=== PATIENT | female | born 1975 | race Caucasian/White ===

== ENCOUNTER 2017-09-22 20:52 | Emergency (ER) | payer BC, OTHER ==
[2017-09-22 21:15] VITALS: O2SAT 98
--- NOTE | 2017-09-22 21:24 | ERPHSYRPT ---
- History of Present Illness Time Seen by Provider: 09/22/17 21:17 Historian: patient, family Exam Limitations: no limitations Patient Subjective Stated Complaint: pt reports eating a raw hamburger from [employer] yesterday. last night began with abd cramps and diarrhea. reports approx 12 diarrhea stools since last night. Triage Nursing Assessment: pt is aox3, pt pupils perrl, pt resps easy and non labored, abd is soft and non tender, bowel sounds are present and normoactive x4. abd cramping to diffuse abdomen. cap refill < 3 seconds. mucmous membranes are moist. Physician History: pt ate raw hamburger yesterday and developed diarrhea - no blood noted; no prior abd surgery only cramping pain no vomiting , no fever, abd nottender to palp Timing/Duration: yesterday Activities at Onset: none Quality: cramping Abdominal Pain Onset Location: generalized abdomen Pain Radiation: no radiation Severity of Pain-Max: moderate Severity of Pain-Current: moderate Associated Symptoms: diarrhea, nausea Previous symptoms: no prior history, no recent treatment Allergies/Adverse Reactions: No Known Drug Allergies Allergy (Unverified 09/22/17 21:14) Hx Tetanus, Diphtheria Vaccination/Date Given: No Hx Influenza Vaccination/Date Given: No Hx Pneumococcal Vaccination/Date Given: No Immunizations Up to Date: Yes - Review of Systems Constitutional: No Fever, No Chills Eyes: No Symptoms Ears, Nose, & Throat: No Symptoms Respiratory: No Cough, No Dyspnea Cardiac: No Chest Pain, No Edema, No Syncope Abdominal/Gastrointestinal: Abdominal Pain, Nausea, Diarrhea, No Vomiting Genitourinary Symptoms: No Dysuria Musculoskeletal: No Back Pain, No Neck Pain Skin: No Rash Neurological: No Dizziness, No Focal Weakness, No Sensory Changes Psychological: No Symptoms Endocrine: No Symptoms All Other Systems: Reviewed and Negative - Past Medical History Pertinent Past Medical History: No - Past Surgical History Past Surgical History: Yes Female Surgical History: Section, Other Other Surgical History: cervical CA, part of cervix removed 1996 - Social History Smoking Status: Never smoker Drug Use: none Patient Lives Alone: No - Female History Hx Last Menstrual Period: 09/12/17 Hx Now: No - Nursing Vital Signs Nursing Vital Signs: Initial Vital Signs Temperature 99.6 F 09/22/17 21:02 Pulse Rate 88 09/22/17 21:02 Respiratory Rate 18 06/09/18 21:02 Blood Pressure 189/132 09/22/17 21:02 O2 Sat by Pulse Oximetry 98 09/22/17 21:02 Pain Scale Pain Intensity 4 - Physical Exam General Appearance: no apparent distress, alert Eye Exam: PERRL/EOMI, eyes nml inspection Ears, Nose, Throat Exam: normal ENT inspection, pharynx normal, moist mucous membranes Neck Exam: normal inspection, non-tender, supple, full range of motion Respiratory Exam: normal breath sounds, lungs clear, No respiratory distress Cardiovascular Exam: regular rate/rhythm, normal heart sounds Gastrointestinal/Abdomen Exam: soft, No tenderness, No mass Back Exam: normal inspection, normal range of motion, No CVA tenderness, No vertebral tenderness Extremity Exam: normal inspection, normal range of motion, pelvis stable Neurologic Exam: alert, oriented x 3, cooperative, normal mood/affect, nml cerebellar function, sensation nml, No motor deficits Skin Exam: normal color, warm, dry SpO2: 98 Oxygen Delivery: Room Air - Course Nursing assessment & vital signs reviewed: Yes Ordered Tests: Active Orders 24 hr Category Date Time Status IV Insertion STAT Care 09/22/17 21:26 Active PO Fluid Challenge STAT Care 09/22/17 22:38 Active AMYLASE Stat Lab 09/22/17 21:40 Completed CBC W DIFF Stat Lab 09/22/17 21:40 Completed CMP Stat Lab 09/22/17 21:40 Completed HCG QUALITATIVE,SERUM Stat Lab 09/22/17 21:40 Completed LIPASE Stat Lab 09/22/17 21:40 Completed Lactic Acid Stat Lab 09/22/17 21:30 Completed Lactic Acid Stat Lab 09/22/17 23:51 Ordered Occult Blood,Stool Other Stat Lab 09/22/17 21:27 Uncollected UA W/ MICROSCOPIC Stat Lab 09/22/17 22:00 Completed Medication Summary Discontinued Medications Generic Name Dose Route Start Last Admin Trade Name Freq PRN Reason Stop Dose Admin Diphenhydramine HCl 25 mg 09/22/17 23:58 09/23/17 00:16 Benadryl 50 Mg/Ml IV 09/22/17 23:59 25 mg STAT ONE Administration Diphenhydramine HCl Confirm 09/23/17 00:14 Benadryl 50 Mg/Ml Administered 09/23/17 00:15 Dose 50 mg .ROUTE .STK-MED ONE Sodium Chloride 1,000 mls @ 999 mls/hr 09/22/17 21:26 09/22/17 23:03 Sodium Chloride 0.9% 1000 Ml IV 09/22/17 22:26 Infused .Q1H1M STA Infusion Sodium Chloride Confirm 09/22/17 21:37 Sodium Chloride 0.9% 1000 Ml Administered 09/22/17 21:38 Dose 1,000 mls @ ud .ROUTE .STK-MED ONE Azithromycin 500 mg in 250 mls @ 250 mls/hr 09/22/17 23:03 09/22/17 23:06 Zithromax 500 Mg/ 250 Ml Nacl Premix IV 09/23/17 00:02 250 mls/hr STAT ONE Administration Azithromycin Confirm 09/22/17 23:05 Zithromax 500 Mg/ 250 Ml Nacl Premix Administered 09/22/17 23:06 Dose 500 mg in 250 mls @ ud IV .STK-MED ONE Morphine Sulfate 4 mg 09/22/17 23:58 09/23/17 00:16 Morphine Sulfate 4 Mg Inj IV 09/22/17 23:59 4 mg STAT ONE Administration Morphine Sulfate Confirm 09/23/17 00:14 Morphine Sulfate 4 Mg Inj Administered 09/23/17 00:15 Dose 4 mg .ROUTE .STK-MED ONE Ondansetron HCl 4 mg 09/22/17 21:26 09/22/17 21:41 Zofran 4 Mg/2 Ml Vial IV 09/22/17 21:27 4 mg STAT ONE Administration Ondansetron HCl Confirm 09/22/17 21:37 Zofran 4 Mg/2 Ml Vial Administered 09/22/17 21:38 Dose 4 mg .ROUTE .STK-MED ONE Lab/Rad Data: Laboratory Result Diagrams 09/22/17 21:40 09/22/17 21:40 Laboratory Results 09/22/17 09/22/17 09/22/17 Range/Units 22:00 21:40 21:40 WBC (4.0-10.5) K/mm3 RBC (4.1-5.4) M/mm3 Hgb (12.0-16.0) gm/dl Hct (35-47) % MCV (78-100) fl MCH (26-32) pg MCHC (32-36) g/dl RDW (11.5-14.0) % Plt Count (150-450) K/mm3 MPV (6-9.5) fl Gran % (36.0-66.0) % Eos # (Auto) (0-0.5) Absolute Lymphs (auto) (1.0-4.6) Absolute Monos (auto) (0.0-1.3) Lymphocytes % (24.0-44.0) % Monocytes % (0.0-12.0) % Eosinophils % (0.00-5.0) % Basophils % (0.0-0.4) % Absolute Granulocytes (1.4-6.9) Basophils # (0-0.4) Sodium 143 (137-145) mmol/L Potassium 3.7 (3.5-5.1) mmol/L Chloride 107 (98-107) mmol/L Carbon Dioxide 26 (22-30) mmol/L Anion Gap 14.0 (5-15) MEQ/L BUN 11 (7-17) mg/dL Creatinine 0.74 (0.52-1.04) mg/dL Estimated GFR > 60.0 ML/MIN Glucose 140 H (74-106) mg/dL Lactic Acid (0.4-2.0) Calcium 9.8 (8.4-10.2) mg/dL Total Bilirubin 0.10 L (0.2-1.3) mg/dL AST 25 (14-36) U/L ALT 26 (0-35) U/L Alkaline Phosphatase 97 (38-126) U/L Serum Total Protein 7.3 (6.3-8.2) g/dL Albumin 4.0 (3.5-5.0) g/dL Amylase 63 (30-110) U/L Lipase 96 (23-300) U/L Serum , Qual NEGATIVE (Negative) Ur Collection Type CLEAN CATCH Urine Color YELLOW (YELLOW) Urine Appearance CLEAR (CLEAR) Urine pH 5.0 (5-6) Ur Specific [place] 1.025 (1.005-1.025) Urine Protein NEGATIVE (Negative) Urine Ketones NEGATIVE (NEGATIVE) Urine Blood TRACE HEMOLYZED (0-5) [place]/ul Urine Nitrite NEGATIVE (NEGATIVE) Urine Bilirubin NEGATIVE (NEGATIVE) Urine Urobilinogen NORMAL (0-1) mg/dL Ur Leukocyte Esterase NEGATIVE (NEGATIVE) Urine Microscopic RBC 0-2 (0-2) /HPF Urine Microscopic WBC 0-2 (0-5) /HPF Ur Epithelial Cells FEW (FEW) /HPF Urine Bacteria RARE (NEGATIVE) /HPF Urine Culture Reflexed NO (NO) Urine Glucose NEGATIVE (NEGATIVE) mg/dL Specimen Received 09/22/17 2200 09/22/17 09/22/17 Range/Units 21:40 21:30 WBC 11.0 H (4.0-10.5) K/mm3 RBC 4.61 (4.1-5.4) M/mm3 Hgb 13.1 (12.0-16.0) gm/dl Hct 39.1 (35-47) % MCV 84.8 (78-100) fl MCH 28.4 (26-32) pg MCHC 33.5 (32-36) g/dl RDW 13.4 (11.5-14.0) % Plt Count 362 (150-450) K/mm3 MPV 9.4 (6-9.5) fl Gran % 62.4 (36.0-66.0) % Eos # (Auto) 0.30 (0-0.5) Absolute Lymphs (auto) 2.96 (1.0-4.6) Absolute Monos (auto) 0.84 (0.0-1.3) Lymphocytes % 26.9 (24.0-44.0) % Monocytes % 7.6 (0.0-12.0) % Eosinophils % 2.7 (0.00-5.0) % Basophils % 0.4 (0.0-0.4) % Absolute Granulocytes 6.87 (1.4-6.9) Basophils # 0.04 (0-0.4) Sodium (137-145) mmol/L Potassium (3.5-5.1) mmol/L Chloride (98-107) mmol/L Carbon Dioxide (22-30) mmol/L Anion Gap (5-15) MEQ/L BUN (7-17) mg/dL Creatinine (0.52-1.04) mg/dL Estimated GFR ML/MIN Glucose (74-106) mg/dL Lactic Acid 1.9 (0.4-2.0) Calcium (8.4-10.2) mg/dL Total Bilirubin (0.2-1.3) mg/dL AST (14-36) U/L ALT (0-35) U/L Alkaline Phosphatase (38-126) U/L Serum Total Protein (6.3-8.2) g/dL Albumin (3.5-5.0) g/dL Amylase (30-110) U/L Lipase (23-300) U/L Serum , Qual (Negative) Ur Collection Type Urine Color (YELLOW) Urine Appearance (CLEAR) Urine pH (5-6) Ur Specific [place] (1.005-1.025) Urine Protein (Negative) Urine Ketones (NEGATIVE) Urine Blood (0-5) [place]/ul Urine Nitrite (NEGATIVE) Urine Bilirubin (NEGATIVE) Urine Urobilinogen (0-1) mg/dL Ur Leukocyte Esterase (NEGATIVE) Urine Microscopic RBC (0-2) /HPF Urine Microscopic WBC (0-5) /HPF Ur Epithelial Cells (FEW) /HPF Urine Bacteria (NEGATIVE) /HPF Urine Culture Reflexed (NO) Urine Glucose (NEGATIVE) mg/dL Specimen Received - Progress Progress: improved, re-examined Progress Note: 09/22/17 22:07 discussed the possibility of e coli 157 with pt and that ab may harm in this case .. however she has not had gross blood , discussed risk and benefit of ab in her case and she wishes to proceed with azithramax , which may be less harmful thatn a flouroquinilone if it does shoe turner to be 157 - , but also less coverage of some types. 09/22/17 23:09 zofran stopped. pt alexandru po challenge 09/23/17 00:35 pain has improved and wishes outpt f/u rather than further eval in er / admission at this time; Counseled pt/family regarding: lab results, diagnosis, need for follow-up - Departure Time of Disposition: 00:33 Departure Disposition: Home Clinical Impression: Diarrhea, Abdominal pain Condition: Good Critical Care Time: No Referrals: DOCTOR,NO FAMILY [Primary Care Provider] - Instructions: Blood in the Urine (Hematuria) in Adults, Diarrhea and Traveler' s Diarrhea, Adult (DC), Acute Abdomen (Belly Pain), Adult (DC) Additional Instructions: followup with PCP for blood pressure and to recheck urine for blood, collect stool specimen for return for results to be followed up by your dr. return meantime if not improving or further concerns. Prescriptions: Azithromycin 250 mg [Zithromax 250 MG TABLET] 250 mg PO BID #7 tablet
[2017-09-22] MEDS ORDERED: Sodium Chloride 0.9% 1000 ML 1,000 ML IV STA (21:26)
[2017-09-22] MEDS ORDERED: Zofran 4 MG/2 ML VIAL IV ONE (21:26)
[2017-09-22] MEDS ORDERED: Sodium Chloride 0.9% 1000 ML 1,000 ML ONE (21:37)
[2017-09-22] MEDS ORDERED: Zofran 4 MG/2 ML VIAL ONE (21:37)
[2017-09-22 21:46] LABS: BASOPHIL % 0.4 % (0.0-0.4); Basophil (Absolute #) 0.04 (0-0.4); Eosinophil % 2.7 % (0.00-5.0); Granulocyte Absolute (ANC) 6.87 (1.4-6.9); Granulocytes % 62.4 % (36.0-66.0); Hematocrit 39.1 % (35-47); Hemoglobin 13.1 gm/dl (12.0-16.0); Lymphocyte (Absolute #) 2.96 (1.0-4.6); Lymphocytes % 26.9 % (24.0-44.0); Mean Cell Volume 84.8 fl (78-100); Mean Corpuscular Hemoglobin 28.4 pg (26-32); Mean Corpuscular Hgb Concent. 33.5 g/dl (32-36); Mean Platelet Volume 9.4 fl (6-9.5); Monocyte (Absolute #) 0.84 (0.0-1.3); Monocytes % 7.6 % (0.0-12.0); Platelet Count 362 K/mm3 (150-450); Red Blood Count 4.61 M/mm3 (4.1-5.4); Red Cell Distribution Width 13.4 % (11.5-14.0)
[2017-09-22 21:51] LABS: Lactic Acid 1.9 (0.4-2.0)
[2017-09-22 22:20] LABS: ALKALINE PHOSPHATASE 97 U/L (38-126); AMYLASE 63 U/L (30-110); BLOOD UREA NITROGEN 11 mg/dL (7-17); CHLORIDE 107 mmol/L (98-107); Calcium 9.8 mg/dL (8.4-10.2); Carbon Dioxide 26 mmol/L (22-30); Creatinine 1 0.74 mg/dL (0.52-1.04); Glucose 140 mg/dL (74-106); LIPASE 96 U/L (23-300); Potassium 3.7 mmol/L (3.5-5.1); SGOT/AST 25 U/L (14-36); SGPT/ALT 26 U/L (0-35); SODIUM 143 mmol/L (137-145); Total Protein 7.3 g/dL (6.3-8.2)
[2017-09-22 22:47] LABS: Appearance CLEAR (CLEAR); Bilirubin NEGATIVE (NEGATIVE); Blood TRACE HEMOLYZED Ery/ul (0-5); Glucose NEGATIVE (NEGATIVE); Ketones NEGATIVE (NEGATIVE); Leukocyte Esterase NEGATIVE (NEGATIVE); Nitrite NEGATIVE (NEGATIVE); Protein,Urine Dip NEGATIVE (Negative); Specific Gravity 1.025 (1.005-1.025); Urobilinogen NORMAL mg/dL (0-1)
[2017-09-22 22:48] LABS: Bacteria RARE /HPF (NEGATIVE); Epithelial Cells FEW /HPF (FEW); RBC 0-2 /HPF (0-2); WBC 0-2 /HPF (0-5)
[2017-09-22] MEDS ORDERED: Zithromax 500 MG/ 250 ML NaCl Premix 500 MG/250 ML IVPB IV ONE ×2 (23:03→23:05)
[2017-09-22] MEDS ORDERED: BENADRYL 50 MG/ML IV ONE (23:58)
[2017-09-22] MEDS ORDERED: MORPHINE SULFATE 4 MG INJ IV ONE (23:58)
[2017-09-23] MEDS ORDERED: BENADRYL 50 MG/ML ONE (00:14)
[2017-09-23] MEDS ORDERED: MORPHINE SULFATE 4 MG INJ ONE (00:14)
[2017-09-23 00:56] VITALS: BP 187/107; PULSE 84
== END 2017-09-23 00:45 | disposition home or self-care (01) ==
LOC: ED 20:52
DX: R19.7 Diarrhea, unspecified (principal); R10.9 Unspecified abdominal pain
CPT/HCPCS: 36000; 36415; 80053; 81000; 82150; 83605; 83690; 84703; 85025; 96360; 96365; 96374; 96375; 99284; J0456; J1200; J2270; J2405